=== PATIENT | female | born 1970 | race Caucasian/White ===

== ENCOUNTER 2023-09-16 07:00 | Day surgery (SDC) | payer OTHER ==
[2023-09-02 08:35] VITALS: BP 102/72
[~2023-09-16] VITALS: Ht 167.6 cm; Wt 67.3 kg
--- NOTE | ~2023-09-16 | OR ---
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 PROCEDURES: 1. Injection of methylene blue dye for sentinel lymph node identification, right side. 2. Right deep axillary sentinel lymph node biopsy. 3. Right image guided (MATT flexible nanny) partial mastectomy superior central right breast. ANESTHESIA: General LMA, Wilbur Charles, RECOATER and local 5 mL of 0.25% Marcaine with epinephrine. INDICATION: This 52-year-old white woman is a patient of Dr. Ybarra and has had longstanding multiple breast lumps per her history. She underwent mammogram for screening and subsequently diagnostic mammogram and ultimately stereotactic biopsy performed on July 15, 2023, at the 12 o'clock position in the right breast showing a grade 3 high-grade ductal carcinoma in situ with comedo necrosis. Estrogen receptor was ER/DE positive, HER-2/camille negative. She has not felt a specific mass nor is there clinical mass on exam at this time. She has no family history of breast cancer. Her options of management were reviewed with her in detail. She prefers a compressed conservation approach which will include partial mastectomy and postoperative radiation therapy. Given the high-grade nature of her lesion, a concurrent sentinel lymph node biopsy was offered. The risk of bleeding, infection, arm edema, wound problems, cosmetic deformity, need for additional treatment including additional breast surgery to provide a more significant negative margin were all reviewed with her in detail. She understands and wished to proceed. FINDINGS: Good uptake by radionuclide to the axilla was noted. Similarly, methylene blue dye to a dominant sentinel lymph node was identified as well. As regards the breast, the MATT flexible nanny placement was near the clip previously placed biopsy. Right partial mastectomy was undertaken in a two level configuration. Specimen radiograph confirmed that the clip and the MATT flexible nanny located device was within the PATIENT NAME: ROOSEVELT ARROYO OPERATIVE REPORT DATE OF : 68 REPORT #: [id number] PHYSICIAN: YIMI SULLIVAN MD PCP: CAITLIN YBARRA MD REPORT IS CONFIDENTIAL AND NOT TO BE RELEASED WITHOUT AUTHORIZATION [facility] [address], [place] [address] Draft substance of the breast excised. There was no palpable abnormality or other issue. Closure of the breast was without complication and with good cosmesis. PROCEDURE IN DETAIL: The patient was received from the radiology suite, examination undertaken. She was taken to the operating room and given a general LMA type anesthetic. Preoperative antibiotic Ancef was given. Sequential compression device stockings used and heparin subcutaneously administered. Interrogation of the right breast with a MATT flexible nanny device did show strong signal on the areolar margin superiorly in the right breast. 1 mL of methylene blue dye was injected in the subepithelial space in the upper outer aspect of the right periareolar area. The chest, axilla, and breasts were all prepared with a chlorhexidine solution and draped sterilely. The right axilla was examined with the C-Trak gamma probe and an area of maximal uptake identified. In this area, a small transverse incision was made in the medial aspect of the axilla and dissection was carried through the subcutaneous tissue with blunt electrocautery dissection. Promptly noted were methylene blue dye lymphatic channels which were followed into the depths of the axilla ultimately and identifying an obvious sentinel lymph node. This was grasped with an Allis clamp, carefully dissected free from surrounding soft tissue. Clips were applied to the lymphatic channels as necessary. An adjacent probably non-sentinel lymph node was excised in continuity with this complex. Interrogation of the axilla with the gamma probe showed no additional dominant uptake nor were there any additional blue lymphatics to identify additional nodes. The wound was then packed with gauze. Attention was turned towards the right breast. The MATT flexible nanny probe was used to confirm the area of activity in the superior central breast just cephalad to the areolar margin. The areolar margin was identified and marked with a marker and a curvilinear incision was made in the superior aspect of the areolar margin. Dissection was carried through the dermis with electrocautery. Using electrocautery dissection with the MATT flexible nanny probe as a guide resection of breast tissue deep to the skin was undertaken in alignment with the MATT flexible nanny signal. Excision was undertaken and the specimen marked with a short stitch superior and a long stitch lateral. Interrogation of the excised specimen did not show uptake. Re-examination of the depths of the breast parenchyma showed the MATT flexible nanny located still within the substance of the breast. The wound was reoriented and using the MATT flexible nanny as a guide wide resection was undertaken deep to the original biopsy down to the pectoralis fascia in fact. Care was taken to provide clinically negative margins. There was no palpable abnormality within the breast and none of the breast tissue. Particularly abnormal. Resection of the deeper tissue generally and alignment with the original excision was undertaken. The specimen was appropriately marked with a short stitch superior and a long stitch lateral. Interrogation of the excised specimen with the MATT flexible nanny probe showed it to be absolutely in the excised specimen. The specimen was sent for specimen radiograph confirming the MATT flexible nanny PATIENT NAME: ROOSEVELT ARROYO OPERATIVE REPORT DATE OF : 68 REPORT #: [id number] PHYSICIAN: YIMI SULLIVAN MD PCP: CAITLIN YBARRA MD REPORT IS CONFIDENTIAL AND NOT TO BE RELEASED WITHOUT AUTHORIZATION [facility] [address] [place] [id number] Draft reflector as well as the original clip to be within the breast substance excised. Microcalcifications were noted as well. Irrigation was undertaken in the depths of the breast wound. Hemostasis was assured with electrocautery. Sterile water was used in addition. The parenchyma was reapproximated with interrupted 2-0 Vicryl suture after hemostasis was complete. A few small clips were applied to areas as appropriate. The skin was then closed with running subcuticular 3-0 Vicryl. Re-examination of the right axilla showed no sign of bleeding or other problem. The wound was closed in layers with interrupted 2-0 Vicryl and running subcuticular 3-0 Vicryl for the skin as well. Steri-Strips were applied to both sites as were Acticoat dressings. She tolerated the procedure well. Blood loss was estimated at less than 25 mL. MD SHAMAR Timmons/SANTY /[id number] cc: Caitlin Ybarra MD Copies: ~ PATIENT NAME: ROOSEVELT ARROYO OPERATIVE REPORT DATE OF : 68 REPORT #: [id number] PHYSICIAN: YIMI SULLIVAN MD PCP: CAITLIN YBARRA MD REPORT IS CONFIDENTIAL AND NOT TO BE RELEASED WITHOUT AUTHORIZATION
[~2023-09-16 07:00] MED LIST: BUTALB-ACETAMI1 EACH PO; CEFAZOLIN SODIUM 2 GM/20 ML SYR IV SCH; CHILDREN'S ASPI81 M1 PO; HEParin SOD (PORCINE) 5,000 UNIT/0.5 ML SYR SUB-Q SCH; IBLOOD GLUCOSE TEST STRIP 1 EA TEST VI PRN; LACTATED RINGER'S 1,000 ML IV SCH; LIDOCAINE HCL 1% 5 ML SDV INJ ONE; MAGNEBIND 3001 EACH PO; MULTI VITAMIN1 EACH PO; PROBIOTIC1 EAC2 PO; SUDAFED 12 HOU120 MG PO; VIT D2-K1 20-1259 ML PO; ZINC7.5 MG PO
[2023-09-16 07:17] VITALS: BP 120/82
--- NOTE | 2023-09-16 08:58 | NUR ---
0845 updated pt on wait time, pt and understanding at this time.
--- NOTE | 2023-09-16 10:42 | NUR ---
LE 1000 INFORMED PT OF UPDATED WAIT TIME. PT AND UNDERSTANDINGS.
[2023-09-16] MEDS ORDERED: KETAMINE in NS 50 MG/5 ML SYR ONE (10:54)
[2023-09-16] MEDS ORDERED: fentaNYL citrate 100 MCG/2 ML VIAL ONE (10:54)
[2023-09-16] MEDS ORDERED: LIDOCAINE HCL 2% 5 ML SDV ONE ×2 (10:55→12:01)
[2023-09-16] MEDS ORDERED: ondansetron HCL 4 MG/2 ML VIAL ONE (10:55)
[2023-09-16] MEDS ORDERED: propofoL 200 MG/20 ML VIAL ONE (10:55)
[2023-09-16] MEDS ORDERED: DEXAMETHASONE SOD PHOS 4 MG/ML VIAL ONE (10:55)
[2023-09-16] MEDS ORDERED: ACETAMINOPHEN 1,000 MG/100 ML VIAL ONE (10:56)
[2023-09-16] MEDS ORDERED: Methylene Blue 100 MG/10 ML SDV ONE (10:56)
[2023-09-16] MEDS ORDERED: KETOROLAC TROMETHAMINE 30 MG/ML VIAL ONE ×2 (10:56→10:58)
[2023-09-16] MEDS ORDERED: NALOXONE HCL 0.4 MG SYR IV PRN ×2 (12:15→13:15)
[2023-09-16] MEDS ORDERED: fentaNYL citrate 50 MCG/ML SDV IV PRN (12:15)
[2023-09-16] MEDS ORDERED: ondansetron HCL 4 MG/2 ML VIAL IV PRN (12:15)
[2023-09-16] MEDS ORDERED: IBLOOD GLUCOSE TEST STRIP 1 EA TEST VI PRN (12:15)
[2023-09-16] MEDS ORDERED: droPERidol 5 MG/2 ML VIAL IV PRN (12:15)
--- NOTE | 2023-09-16 13:00 | NUR ---
09/16/23 Carmella Desouza 1250- PT PRESENTS TO PACU, SEMI MEZA POSITION. REACTIVE TO STIMULUS, BUT RESTING AT THIS TIME. DRESSINGS IN PLACE TO RIGHT BREAST, CDI. O2 AT 6L PER MASK, BREATHING EVEN AND NON LABORED. LR INFUSING TO LW IV. ABD SOFT, NON DISTENDED. ALL MONITORS IN PLACE. 1257-
[2023-09-16] MEDS ORDERED: OXYCODON-ACETA1 EAC2 PO (13:10)
[2023-09-16] MEDS ORDERED: IBUPROFEN600 MG PO (13:10)
[2023-09-16] MEDS ORDERED: ACETAMINOPHEN500 MG PO (13:11)
[2023-09-16] MEDS ORDERED: LACTATED RINGER'S 1,000 ML IV SCH (13:15)
[2023-09-16] MEDS ORDERED: IBUPROFEN 600 MG TAB PO PRN (13:15)
[2023-09-16] MEDS ORDERED: OXYCODONE/APAP 7.5/325 TAB PO PRN (13:15)
[2023-09-16] MEDS ORDERED: ACETAMINOPHEN 500 MG TAB PO PRN (13:15)
[2023-09-16 14:33] VITALS: BP 92/54
--- NOTE | 2023-09-16 14:38 | NUR ---
1415 PT ARRIVED TO DAY SURGERY ROOM 5 VIA KHADIJAHCHER FROM PACU. PT HAS MIGRAINE, AND IS CLAMMY. BREATHING EQUAL AND UNLABORED. REPORT TAKEN FROM LANDON DIETZ. PT REPORTS NEEDING TO PEE. TOOK PT BP SITTING ON THE EDGE OF THE BED 71/49. LAYED PATIENT BACK DOWN AND RE TOOK BP 92/54. PT DOES NOT REPORT BEING NAUSOUS. PT SAYS SHE CAN WAIT TO PEE. PT REPORTS 5/10 PAIN IN BREAST, INFORMED PT OF HAVING TO WAIT ON PAIN MEDICATIONS DUE TO BP. PT STATES UNDERSTANDING OF THIS. 1430 LANDON DIETZ CALLED ANESTHEISA PROVIDER CHEYENNE AND REPORTED BP. PER CHEYENNE WE ARE TO FINISH L OF FLUIDS THAT IS RUNNING, AND IF BP DOES NOT COME UP THEN TO BOLUS 500 L OF LR. 1441 PT RESTING IN BED WITH LIGHTS OFF, CALL LIGHT WITHIN REACH. CONTINUOUS PLUSE OX IN PLACE. PT REPORTS WANTING TO REST.
[2023-09-16 15:28] VITALS: BP 105/57
--- NOTE | 2023-09-16 15:29 | NUR ---
1515 PT VITALS TAKEN WHEN SITTING IN BED BP 105/57. AFTER SITTING ON THE EDGE OF THE BED PT BP 87/55. PT ABLE TO STAND AND PIVOT TO COMODE AND URINATE 150 MLS. PT REPORTS 5/10 PAIN CURRENTLY. IV ASSESSED. PT BACK IN BED PT TOLERATING PO CRACKERS AND WATER. PT REPORTS NO NAUSEA. PT HAS CALL LIGHT WITHIN REACH..
[2023-09-16 16:17] VITALS: BP 109/63
--- NOTE | 2023-09-16 16:25 | NUR ---
LE [address] PT PER [address] SULLIVAN REQUEST. PT HAD 15 MLS OF URINE IN BLADDER PER BLADDER SCANNER.
--- NOTE | 2023-09-16 16:26 | NUR ---
1615 VITALS TAKEN. PT PAIN DOWN TO A 4/10. PT ABLE TO TOLERATE PO FLUIDS AND CRACKERS AND VOID. 1620 DISCHARGE INFORMATION GONE OVER WITH PT AND AT BEDSIDE. PT AND HAVE NO FURTHER QUESTIONS AT THIS TIME. PRESCRIPTION SENT WITH PT. 1625 PT DISCHARGED FROM DAY SURGERY VIA WHEELCHAIR TO FRONT OF THE HOSPITAL TO HUSBANDS CAR.
--- NOTE | 2023-09-21 20:15 | PATH ---
[facility] [address] [facility] [place], [place] [address] Signed SPECIMEN(S): A RIGHT SENTINEL LYMPH NODE #1 SPECIMEN(S): B RIGHT BREAST, SUPERIOR CENTRAL SPECIMEN(S): C RIGHT BREAST, ADDITIONAL TISSUE SPECIMEN SOURCE: A. RIGHT SENTINEL LYMPH NODE #1 B. RIGHT BREAST, SUPERIOR CENTRAL C. RIGHT BREAST, ADDITIONAL TISSUE CLINICAL HISTORY: Intraductal carcinoma in situ right breast. FINAL PATHOLOGIC DIAGNOSIS: A. Right axilla, sentinel lymph node #1, sentinel node biopsy: - Two sentinel lymph nodes; negative for metastatic carcinoma (0/2). B. Right breast, superior central, lumpectomy: - Site of previous biopsy identified with adjacent high-grade ductal carcinoma in-situ. - All margins are negative for DCIS. - Negative for invasive carcinoma. - Please see synoptic report below for complete details. C. Right breast, additional tissue, lumpectomy: - Mild fibrocystic change with occasional microcalcifications. - Focus of fibroadenomatoid change. - Extensive fatty metamorphosis. - Negative for in situ or invasive carcinoma. DCIS OF THE BREAST: Resection Applies To: A, B, C SPECIMEN Procedure: Lumpectomy with additional tissue/extended margin and sentinel node biopsy Specimen Laterality: Right TUMOR Histologic Type: Ductal carcinoma in situ Size (Extent) of DCIS: Estimated size (extent) of DCIS is at least (Millimeters) - 6.0 x 3.0 mm Number of Blocks with DCIS: 2 Number of Blocks Examined: Specimen B: 15 blocks Specimen C: 20 blocks Architectural Patterns: Solid PATIENT NAME: ROOSEVELT ARROYO PATHOLOGY DATE OF : 68 REPORT #: [id number] PHYSICIAN: KELLY PATHOLOGY PCP: CAMACHO MENDOZA MD REPORT IS CONFIDENTIAL AND NOT TO BE RELEASED WITHOUT AUTHORIZATION [facility] [address], [place] [address] Signed Nuclear Grade: Grade III (high) Necrosis: Present, central (expansive "comedo" necrosis) Microcalcifications: Coarse microcalcifications present in DCIS Small microcalcifications present in nonneoplastic tissue MARGINS Margin Status: All margins negative for DCIS Distance from DCIS to Closest Margin: 5.0 mm Closest Margin to DCIS: Anterior All other margins are negative for DCIS by greater than 10.0 mm REGIONAL LYMPH NODES Regional Lymph Node Status: All regional lymph nodes negative for tumor Total Number of Lymph Nodes Examined (sentinel and non-sentinel): 2 Number of [place] Nodes Examined: 2 DISTANT METASTASIS Distant Site(s) Involved: Cannot be determined PATHOLOGIC STAGE CLASSIFICATION (pTNM, AJCC 8th Edition) Reporting of pT, pN, and (when applicable) pM categories is based on information available to the pathologist at the time the report is issued. As per the AJCC (Chapter 1, 8th Ed.) it is the managing physician's responsibility to establish the final pathologic stage based upon all pertinent information, including but potentially not limited to this pathology report. pT Category: pTis (DCIS) Regional Lymph Nodes Modifier: (sn): [place] node(s) evaluated pN Category: pN0 ADDITIONAL FINDINGS: Fibrocystic change with associated small microcalcifications. COMMENT: Prognostic marker testing was performed on the previous core biopsy specimen ([id number]) with the following results: Estrogen receptor: Positive in 91-100% of the DCIS tumor cell nuclei. Progesterone receptor: Positive in 11-20% of the DCIS tumor cell nuclei. SDL MICROSCOPIC EXAMINATION: Histologic sections of all submitted blocks are examined by light microscopy. These findings, together with the gross examination, support the pathologic diagnosis. GROSS DESCRIPTION: PATIENT NAME: ROOSEVELT ARROYO PATHOLOGY DATE OF : 68 REPORT #: [id number] PHYSICIAN: KELLY SINGH PCP: CAMACHO MENDOZA MD REPORT IS CONFIDENTIAL AND NOT TO BE RELEASED WITHOUT AUTHORIZATION [facility] [address], [place] [address] Signed A. The specimen, labeled and designated "Lina Arroyo, " and designated on the requisition "SLN #1 right," is received in formalin and consists of 2.0 x 1.5 x 0.6 cm portion of yellow-zepeda adipose tissue that upon dissection reveals two possible lymph nodes that measure up to 0.9 cm in greatest dimension. The lymph nodes are entirely submitted for histologic examination. Only adipose tissue remains within the container. Cassette Summary: (A1) one possible lymph node, trisected (A2) one possible lymph node, sectioned B. The specimen, labeled and designated "Leonard, L, " and designated on the requisition "right breast tissue superior central," is received in formalin and consists of 11 gram, oriented portion of yellow-zepeda fibroadipose tissue that is 4.8 x 3.6 x 2.5 cm. The specimen is oriented with clips and inked as follows: superior - blue; inferior - green; medial - red; lateral - orange; anterior - yellow; and posterior - black. The specimen is serially sectioned from superior to inferior into nine slices revealing a metallic customer counter associate detector in slice four and a biopsy clip in slice five, which are surrounded by a pink-white dense rubbery fibrous tissue. No discrete mass lesions are grossly identified. The specimen is entirely submitted in 16 cassettes. Cassette Summary: (B1) slice one, superior soft tissue resection margin, perpendicular (B2) slice two (B3-B4) slice three (B5-B6) slice four (B7-B8) slice five (B9-B10) slice six (B11-B12) slice seven (B13-B14) slice eight (B15-B16) slice nine, inferior soft tissue resection margin, perpendicular Cold ischemia time: Insufficient data to calculate. Approximate Formalin time: 21 hours and 15 minutes. C. The specimen, labeled and designated "Leonard Lina, " and designated on the requisition "right breast additional tissue," is received in formalin and consists of 16 gram, oriented portion of yellow-zepeda fibroadipose tissue that is 4.6 x 4.2 x 2.6 cm. Two sutures are present and are designated as follows: Short stitch-superior, long stitch-lateral. The specimen is inked as follows: superior - blue; PATIENT NAME: ROOSEVELT ARROYO PATHOLOGY DATE OF : 68 REPORT #: [id number] PHYSICIAN: KELLY SINGH PCP: CAMACHO MENDOZA MD REPORT IS CONFIDENTIAL AND NOT TO BE RELEASED WITHOUT AUTHORIZATION [address] [address] Signed inferior - green; medial - red; lateral - orange; anterior - yellow; and posterior - black. The specimen is serially sectioned from medial to lateral into eight slices revealing approximately 60% of the specimen is yellow-zepeda greasy adipose tissue and 40% a pink-white dense rubbery fibrous tissue. No discrete mass lesions are grossly identified. The specimen is entirely submitted in 20 cassettes. Cassette Summary: (C1-C2) slice one, medial soft tissue resection margin, perpendicular (C3-C4) slice two (C5-C6) slice three (C7-C9) slice four (C10-C12) slice five (C13-C15) slice six (C16-C18) slice seven (C19-C20) slice eight, lateral soft tissue resection margin, perpendicular Cold ischemia time: Insufficient data to calculate. Approximate Formalin time: 21 hours and 15 minutes. FB (under the direct supervision of a pathologist) The Gross Description was prepared using a voice recognition system. The report was reviewed for accuracy; however, sound-alike word errors, addition and/or deletions may occur. If there are any questions about this report, please contact Client Services. ADDITIONAL NOTES: Immunohistochemical and/or in situ hybridization studies if performed in this case included appropriate positive controls that reacted as expected. This test was developed and its performance characteristics determined by [facility]. It has not been cleared or approved by the U.S. Food and Drug Administration. The FDA has determined that such clearance or approval is not necessary. This test is used for clinical purposes. It should not be regarded as investigational or for research. [facility] is certified under the Clinical Laboratory Improvement Amendments of 1988 (CLIA) as qualified to perform high complexity clinical laboratory testing. PERFORMING LABORATORY: Technical component was performed by [facility], [address] [place] [id number] (CLIA# [id number]). Professional interpretation was performed by [facility] PATIENT NAME: ROOSEVELT ARROYO PATHOLOGY DATE OF : 68 REPORT #: [id number] PHYSICIAN: INC[facility]TE PATHOLOG[facility] PCP: CAMACHO MENDOZA MD REPORT IS CONFIDENTIAL AND NOT TO BE RELEASED WITHOUT AUTHORIZATION [address] [address] Signed [facility], [address] [place] [phone] (CLIA#: [id number]). Diagnostician: Maria Victoria Alvarez MD Pathologist Electronically Signed 09/21/2023 Copies: ~ PATIENT NAME: ROOSEVELT ARROYO PATHOLOGY DATE OF : 68 REPORT #: [id number] PHYSICIAN: KELLY PATHOLOGY PCP: CAMACHO MENDOZA MD REPORT IS CONFIDENTIAL AND NOT TO BE RELEASED WITHOUT AUTHORIZATION
== END 2023-09-16 16:25 | disposition home or self-care (01) ==
LOC: OPS 07:00 → DS 07:00 → OPS 08:00 → EDSTATUS 08:00 → NUC 08:00 → OPS 16:25
PROVIDERS: ATTEND Surgery
PROC: 0HBT0ZZ Excision of Right Breast, Open Approach (ICD-10-PCS; principal; 2023-09-16 09:30)
PROC: 07B50ZX Excision of Right Axillary Lymphatic, Open Approach, Diagnostic (ICD-10-PCS; 2023-09-16 09:30)
DX: D05.11 Intraductal carcinoma in situ of right breast (principal); N60.11 Diffuse cystic mastopathy of right breast; D24.1 Benign neoplasm of right breast; Z87.19 Personal history of other diseases of the digestive system; Z79.899 Other long term (current) drug therapy
CPT/HCPCS: 00400; 76098; 78195; A9541; J0131; J0690; J1100; J1644; J1790; J1885; J2001; J2405; J2704; J3010; J3490; J7121

== ENCOUNTER 2024-05-22 10:24 | Emergency (ER) | payer OTHER ==
[~2024-05-22] VITALS: Ht 167.6 cm; Wt 70.3 kg
[~2024-05-22 10:24] MED LIST changes: +ACETAMINOPHEN500 MG PO; -CEFAZOLIN SODIUM 2 GM/20 ML SYR IV SCH; -HEParin SOD (PORCINE) 5,000 UNIT/0.5 ML SYR SUB-Q SCH; -IBLOOD GLUCOSE TEST STRIP 1 EA TEST VI PRN; +IBUPROFEN600 MG PO; -LACTATED RINGER'S 1,000 ML IV SCH; -LIDOCAINE HCL 1% 5 ML SDV INJ ONE; +OXYCODON-ACETA1 EAC2 PO
[2024-05-22] MEDS ORDERED: HYDROmorphone HCL 2 MG/ML VIAL IM ONE (10:45)
[2024-05-22] MEDS ORDERED: ONDANSETRON 4 MG TAB ODT SL ONE (10:45)
[2024-05-22] MEDS ORDERED: HYDROCODON-ACE1 EA10 PO (10:46)
[2024-05-22] MEDS ORDERED: EXEMESTANE25 MG PO (10:46)
[2024-05-22] MEDS ORDERED: METOCLOPRAMIDE HCL 10 MG/2 ML SDV IM ONE (11:45)
[2024-05-22] MEDS ORDERED: ATIVAN1 MG PO (14:28)
[2024-05-22] MEDS ORDERED: LORazepam 0.5 MG TAB PO ONE (14:45)
[2024-05-22 14:48] VITALS: BP 124/76
== END 2024-05-22 14:50 | disposition home or self-care (01) ==
LOC: ED 10:24
DX: G44.209 Tension-type headache, unspecified, not intractable (principal); Z79.82 Long term (current) use of aspirin; Z79.899 Other long term (current) drug therapy
CPT/HCPCS: 20552; 70450; 99283-25; A9270; J1171; J2765